=== PATIENT | male | born 1990 | race Caucasian/White ===

== ENCOUNTER 2025-04-12 23:39 | Emergency (ER) | payer OTHER, SELFPAY ==
[2025-04-12 23:58] VITALS: BP 125/85
--- NOTE | 2025-04-13 00:25 | ED.MUSCINJ ---
HPI-Injury
<Carmelo Lunsford MD, Resident - Last Filed: 04/13/25 01:32>
General
Chief Complaint: Musculo-Skeletal Complaint
Source: patient
Exam Limitations: none
Time Seen by Provider: 04/13/25 00:24
History of Present Illness-Injury
Is this injury a work related problem?: No
Is pt an associate of [facility]?: No
Initial Injury comments:
35-year-old male with past medical history of hyperlipidemia, anxiety, asthma comes to the ED due to couple days history of right ankle pain and stiffness. His pain and stiffness started around 2 days ago and has progressively gotten more painful.
Does not member any trauma that may have contributed to his symptoms. Says that he is on his feet the whole day for his job and has to crouch down at some point still. Says that he is no longer able to put much weight on his ankle and is even
difficult to lay down on the bed now because of the pain. Does not report any numbness or sensory changes in his foot or any swelling that he has noticed either. The main area of concern is the whole front and back area around his ankle. Does not
report any fever or chills, and he has not been outside.
Past History
<Carmelo Lunsford MD, Resident - Last Filed: 04/13/25 01:32>
Past History
ED Past Medical History: Asthma, Hypercholesterolemia and Psychiatric (Anxiety)
Social History
Tobacco: Non-smoker
Alcohol: None
Drug: None
Review of Systems
<Carmelo Lunsford MD, Resident - Last Filed: 04/13/25 01:32>
Review of Systems
Allergies reviewed?: Yes
Constitutional: Reports no symptoms
EENT: Reports no symptoms
Respiratory: Reports no symptoms
Cardiac: Reports no symptoms
ABD/GI: Reports no symptoms
: Reports no symptoms
Musculoskeletal: Reports joint pain
Skin: Reports no symptoms
Neurological: Reports no symptoms
Endocrine: Reports no symptoms
Hematologic/Lymphatic: Reports no symptoms
Psychiatric: Reports no symptoms
Musculoskeletal Injury Exam
<Carmelo Lunsford MD, Resident - Last Filed: 04/13/25 01:32>
Musculoskeletal Injury Exam
Right Ankle:
Pain with Movement?: Moderate
Tender to palpation?: Moderate
Soft tissue swelling?: None
External deformity and angulation?: None
Joint effusion?: None
Contusion?: None
Hematoma-local bleeding into tissue?: None
Strain- Sprain- Tear (Connective tissue injury)?: None
Crepitus with movement?: No
Joint instability?: No
Malalignment/deformity?: No
Range of motion: Limited
Distal skin color and temperature: normal-warm & good color
Capillary Refill: normal
Normal distal neurovascular exam?: Yes
Phy Exam
<Carmelo Lunsford MD, Resident - Last Filed: 04/13/25 01:32>
General Physical Exam
General Presentation: mild distress
General Skin: warm and dry
General Mental: alert
Cardiovascular Exam
Cardiovascular Exam: regular rate/rhythm and no murmur
Pulmonary Exam
Pulmonary Exam: lungs clear and no respiratory distress
Musculoskeletal Exam
Musculoskeletal Exam: other (Decreased range of motion right ankle)
Injury Course
<Carmelo Lunsford MD, Resident - Last Filed: 04/13/25 01:32>
Orders/Labs/Results
Orders:
Orders
04/13/25 00:03
Ankle, Right 3 view CR [CR Ankle - Right Min 3 Views *] Urgent
Comment:
Reason For Exam: pain and stiffness
04/13/25 01:00
Ketorolac [Toradol] 15 mg IM NOW STA
04/13/25 01:01
Ramiro Wrap Right-Treatment ONCE
Comment: Right ankle wrap
04/13/25 01:03
Crutches-Treatment ONCE
<Rachel Smith, DO - Last Filed: 04/13/25 01:03>
Orders/Labs/Results
Orders:
Orders
04/13/25 00:03
Ankle, Right 3 view CR [CR Ankle - Right Min 3 Views *] Urgent
Comment:
Reason For Exam: pain and stiffness
04/13/25 01:00
Ketorolac [Toradol] 15 mg IM NOW STA
04/13/25 01:01
Ramiro Wrap Right-Treatment ONCE
Comment: Right ankle wrap
04/13/25 01:03
Crutches-Treatment ONCE
<Carmelo Lunsford MD, Resident - Last Filed: 04/13/25 01:32>
MDM/Problems Addressed
Differential Diagnosis Includes:
Right ankle sprain, Right ankle fracture, Right ankle tendinopathy
MDM/Problems Addressed:
Due to recent worsening of pain for the past two days, fracture was a possibility but patient reports no history of trauma
X-ray of the ankle did not show any apparent fracture
Most likely has an ankle sprain
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
Will give 15mg IM Toradol to help with pain. Will give prescription for 600mg Ibuprofen to take every 6 hrs as needed.
Will give information about orthopedics to follow up with
Counseled regarding placing ice pack to reduce inflammation
Will provide exercises to help with ankle sprain
<Carmelo Lunsford MD, Resident - Last Filed: 04/13/25 01:32>
*Pulse Oximetry
SaO2: 98
Oxygen Mode of Delivery: Room air
Patient hypoxic: no
*Critical Care Note
Total Time (30-74mins, 75-104mins- exclusive of procedures): Not Applicable
ED Attending Note
<Carmelo Lunsford MD, Resident - Last Filed: 04/13/25 01:32>
-
Portions of this chart may have been created with voice recognition software.� Occasional wrong word or��sound alike� substitutions may have occurred due to the inherent limitations of voice recognition software.
<Rachel Smith DO - Last Filed: 04/13/25 01:03>
ED Attending Note
Patient seen and examined by attending physician: Yes
I performed the substantive portion of visit, reviewed & personally made and approve the management plan that is documented in note by myself or CAMI.: Yes
I performed a history and physical exam of patient and discussed management with resident, I reviewed resident's note and agree with documented findings and plan of care.: Yes
ED Attending Note:
35-year-old male presenting to the emergency department for right ankle pain. Patient reports symptoms for the past few days. Denies any inciting injury or trauma. Notes pain particularly in the medial aspect and now has issues with bearing
weight. Denies fever. Denies numbness or tingling. Denies any history of gout or excessive alcohol usage. Denies additional acute medical complaints. Vital signs on arrival are normal.
On exam, patient resting comfortably, no acute distress or discomfort. Overall benign examination of the right ankle. Without any significant swelling. Tenderness at the medial malleoli and distal to the malleoli along the tendon. Distal
sensation and pulses intact. Range of motion grossly intact. No erythema or warmth. No concern at this time for infectious etiology or septic arthritis. No present neurovascular compromise. Ultimately suspect musculoskeletal strain. X-ray
obtained, no evidence of fracture or malalignment. Will place patient in an Ramiro bandage and provide crutches for elevation. Did discuss the RICE method and outpatient orthopedic follow-up if symptoms persist for potential MRI imaging. Also
advised supportive therapy with NSAIDs. Return precautions discussed.
Discharge Plan
Departure
Patient Disposition: Home (Routine Discharge)
Date of Disposition: 04/13/25
Time of Disposition: 01:22
Patient with high blood pressure during this ER visit?: No
Condition: Good
Discharge Problem:
Right ankle sprain
Instructions: How to Use Crutches, Ankle sprain - ED discharge instructions
Prescriptions:
New
ibuprofen 600 mg tablet
600 mg PO Q6H PRN (Reason: Pain) Qty: 20 0RF
Referrals:
Yuan Augustine MD [Active, Orthopedics]
Referral Note: Follow up as needed for your right ankle pain
Debbie Lyn MD [Family Provider, Internal Medicine]
Activity Restrictions/Additional Instructions:
We discussed with you today to follow up with Orthopedics regarding your right ankle pain.
We have sent a prescription for Ibuprofen 600mg 20tablets to your pharmacy to take every 6 hours as needed for pain.
Continue to bandage your right ankle with RAMIRO wraps and use crutches for mobility as needed.
Interventions
Interventions:
*Risk Screen - Suicide Last Done: 04/12/25 23:58
*General Assessment Last Done: 04/12/25 23:58
*Neglect/Abuse Screening Last Done: 04/12/25 23:58
*ED- Fall Risk Assessment Last Done: 04/12/25 23:58
*ED COVID-19 Vaccine History Last Done: 04/12/25 23:58
ED-Musculoskeletal Assessment Last Done: 04/13/25 00:27
Discharge Date and Time
Print Language: CUBAN
[2025-04-13 00:34] VITALS: BMI 29.2
[2025-04-13 00:37] VITALS: BP 105/77
[2025-04-13] MEDS: TORADOL 15 MG IM (01:38)
== END 2025-04-13 02:00 | disposition home or self-care (01) ==
LOC: EMR 23:39
PROVIDERS: EMERGENCY PHYSICIAN Student in an Organized Health Care Education/Training Program; FAMILY PHYSICIAN Internal Medicine
DX: S93.401A Sprain of unspecified ligament of right ankle, initial encounter (principal); E78.00 Pure hypercholesterolemia, unspecified; J45.909 Unspecified asthma, uncomplicated; F41.9 Anxiety disorder, unspecified; W18.39XA Other fall on same level, initial encounter
CPT/HCPCS: 99284; 96372; 73610